=== PATIENT | female | born 1990 | race Caucasian/White ===

== ENCOUNTER 2018-01-25 17:51 | Emergency (ER) | payer MEDICAID ==
[~2018-01-25] VITALS: Ht 160 cm; Wt 67.0 kg
[2018-01-25 18:11] VITALS: BP 121/85
[2018-01-25] MEDS ORDERED: clindamycin 150mg capsule PO ONE (18:50)
[2018-01-25] MEDS ORDERED: acetaminophen 325mg tablet PO ONE (18:50)
[2018-01-25] MEDS ORDERED: CLIN-79 PO (18:51)
== END 2018-01-25 19:07 | disposition home or self-care (01) ==
LOC: ER 17:52
DX: K08.89 Other specified disorders of teeth and supporting structures (principal); Z56.0 Unemployment, unspecified; Z88.0 Allergy status to penicillin; Z88.8 Allergy status to other drugs, medicaments and biological substances; Z79.899 Other long term (current) drug therapy
CPT/HCPCS: 99283

== ENCOUNTER 2018-03-12 17:14 | Emergency (ER) | payer MEDICAID ==
[~2018-03-12] VITALS: Ht 160 cm; Wt 63.0 kg
[~2018-03-12 17:14] MED LIST: CLIN150C8 PO
[2018-03-12 17:26] VITALS: BP 124/86
== END 2018-03-12 18:20 | disposition home or self-care (01) ==
LOC: ER 17:15
DX: J02.9 Acute pharyngitis, unspecified (principal); Z88.1 Allergy status to other antibiotic agents; Z88.0 Allergy status to penicillin
CPT/HCPCS: 87081; 87880; 99284

== ENCOUNTER 2018-12-28 09:01 | Emergency (ER) | payer MEDICAID ==
[~2018-12-28] VITALS: Ht 160 cm; Wt 69.0 kg
[2018-12-28 09:30] VITALS: BP 126/87
[2018-12-28] MEDS ORDERED: MAGN296S50 PO (09:37)
[2018-12-28] MEDS ORDERED: magnesium citrate 296ml oral solution PO ONE (10:00)
== END 2018-12-28 10:09 | disposition home or self-care (01) ==
LOC: ER 09:01
DX: K59.00 Constipation, unspecified (principal); Z88.0 Allergy status to penicillin; Z88.1 Allergy status to other antibiotic agents; Z79.899 Other long term (current) drug therapy; Z56.0 Unemployment, unspecified
CPT/HCPCS: 99282

== ENCOUNTER 2019-02-02 15:08 | Emergency (ER) | payer MEDICAID ==
[~2019-02-02] VITALS: Ht 160 cm; Wt 68.3 kg
[~2019-02-02 15:08] MED LIST changes: +MAGN296S50 PO
[2019-02-02 15:14] VITALS: BP 129/85
== END 2019-02-02 15:30 | disposition left against medical advice (07) ==
LOC: ER 15:08
DX: R10.11 Right upper quadrant pain (principal); Z53.21 Procedure and treatment not carried out due to patient leaving prior to being seen by health care provider

== ENCOUNTER 2021-09-27 23:17 | Emergency (ER) | payer MEDICAID ==
[~2021-09-27] VITALS: Ht 160 cm; Wt 64.5 kg
[~2021-09-27 23:17] MED LIST changes: -MAGN296S50 PO; +MAGN296S70 PO
[2021-09-27 23:28] VITALS: BP 113/80
[2021-09-27] MEDS ORDERED: ondansetron 4mg rapidly disintigrating tab PO ONE (23:50)
[2021-09-27] MEDS ORDERED: TETanus/Pertussis (Acell)/Diphther VAC/PF (Tdap-Adult) 0.5ml syringe IMVAC ONE (23:50)
[2021-09-27] MEDS ORDERED: morphine 4 MG/ML inj SYRINge IM ONE (23:50)
[2021-09-28 00:24] LABS: HCG SERUM QL NEGATIVE
[2021-09-28] MEDS ORDERED: LIDOcaine 1% 30ml preserv. free vial IJ ONE (01:05)
[2021-09-28] MEDS ORDERED: HYDROcodone/acetaminophen 10/325mg tab PO ONE (01:05)
--- NOTE | 2021-09-28 03:09 | NUR ---
MD sutured patient's injured finger with 4.0 ethilon. this RN cleaned wound with normal saline and kerlix pads. patient tolerated procedure. awaiting MD orders for splint and dressing.
[2021-09-28] MEDS ORDERED: HYDR-3965 PO (04:12)
[2021-09-28] MEDS ORDERED: DOXY-1 PO (04:12)
[2021-09-28] MEDS ORDERED: morphine 4 MG/ML inj SYRINge IM ONE (04:15)
[2021-09-29] MEDS ORDERED: NO HOME MEDS (11:52)
[2021-09-30] MEDS ORDERED: midazolam 1 mg/ML 2ml injection ONE (09:51)
[2021-09-30] MEDS ORDERED: fentaNYL/PF 50MCG/1 ML 2ML syringe ONE (09:51)
[2021-09-30] MEDS ORDERED: famotidine/PF 10 mg/ml inj IV ONE (09:54)
[2021-09-30] MEDS ORDERED: vancomycin 1,000mg inj ONE (09:56)
[2021-09-30] MEDS ORDERED: BUPIVAcaine/PF 2.5 mg/ml (0.25%) 30ml vial ONE (09:56)
[2021-09-30] MEDS ORDERED: dexamethasone sod phosphate 4mg/ml inj. ONE (10:35)
[2021-09-30] MEDS ORDERED: propofol inj 20 ML IV ONE (10:35)
[2021-09-30] MEDS ORDERED: ondansetron/PF 4mg/2ml inj ONE (10:35)
[2021-09-30] MEDS ORDERED: LIDOcaine 2% (20mg/ml) 5ml vial ONE (10:35)
== END 2021-09-28 04:48 | disposition home or self-care (01) ==
LOC: ER 23:18
DX: S62.633A Displaced fracture of distal phalanx of left middle finger, initial encounter for closed fracture (principal); S61.213A Laceration without foreign body of left middle finger without damage to nail, initial encounter; Z98.890 Other specified postprocedural states; Z72.89 Other problems related to lifestyle; Z56.0 Unemployment, unspecified; Z88.0 Allergy status to penicillin; Z88.1 Allergy status to other antibiotic agents; Z79.2 Long term (current) use of antibiotics; Z79.899 Other long term (current) drug therapy; W54.0XXA Bitten by dog, initial encounter; Y93.89 Activity, other specified; Y92.89 Other specified places as the place of occurrence of the external cause; Y99.8 Other external cause status
CPT/HCPCS: 26755; 36415; 73130; 84703; 90471; 90715; 96372; 99284; J2270; J3490

== ENCOUNTER 2021-09-29 08:38 | Inpatient (IN) | payer MEDICAID ==
[~2021-09-29] VITALS: Ht 157.5 cm; Wt 64.5 kg
[~2021-09-29 08:38] MED LIST changes: +DOXY-1 PO; +HYDR-3965 PO; +levoFLOXACIN-Levaquin 750MG/D5 150 ML IV ONE
--- NOTE | 2021-09-29 09:28 | NUR ---
providet at bedside.
[2021-09-29] MEDS ORDERED: HYDROcodone/acetaminophen 5mg/325mg tablet PO ONE (09:35)
[2021-09-29] MEDS ORDERED: ondansetron 4mg rapidly disintigrating tab PO ONE (09:35)
--- NOTE | 2021-09-29 10:15 | NUR ---
pt ambulated to/from restroom without incident.
[2021-09-29 10:19] LABS: BASOPHILS % (AUTO) 0.3 % (0-1); EOSINOPHILS # (AUTO) 0.1 X10'3 (0-0.9); EOSINOPHILS % (AUTO) 0.7 % (0-6); HEMATOCRIT 34.3 % (35.0-45.0); HEMOGLOBIN 11.9 g/dl (12.0-16.0); LYMPHOCYTES # (AUTO) 1.5 X10'3 (1.1-4.8); LYMPHOCYTES % (AUTO) 15.9 % (21-51); MEAN CORPUSCULAR HEMOGLOBIN 32.3 PG (27.0-31.0); MEAN CORPUSCULAR HGB CONC 34.6 g/dL (33.0-36.5); MEAN CORPUSCULAR VOLUME 93.5 FL (78-98); MEAN PLATELET VOLUME 8.1 FL (7.4-10.4); MONOCYTES # (AUTO) 0.6 X10'3 (0-0.9); MONOCYTES % (AUTO) 6.6 % (2-12); NEUTROPHILS # (AUTO) 7.1 X10'3 (1.8-7.7); NEUTROPHILS % (AUTO) 76.5 % (42-75); PLATELET COUNT 210 X10'3 (140-440); RED BLOOD COUNT 3.67 X10'6 (4.20-5.60); RED CELL DISTRIBUTION WIDTH 12.2 % (11.5-14.5); WHITE BLOOD COUNT 9.3 X10'3 (4.5-11.0)
[2021-09-29 10:35] LABS: ALANINE AMINOTRANSFERASE 19 U/L (12-78); ALBUMIN 3.3 G/DL (3.4-5.0); ALBUMIN/GLOBULIN RATIO 0.9 (1.1-1.5); ALKALINE PHOSPHATASE 46 IU/L (46-116); ANION GAP 9 (8-16); ASPARTATE AMINO TRANSFERASE 9 U/L (10-37); BILIRUBIN,TOTAL 0.8 MG/DL (0.1-1.0); BLOOD UREA NITROGEN 10 MG/DL (7-18); BUN/CREATININE RATIO 14.9 (6.6-38.0); CALCIUM 8.6 MG/DL (8.5-10.1); CHLORIDE 106 MMOL/L (99-107); CREATININE 0.67 MG/DL (0.40-0.90); GLUCOSE 109 MG/DL (70-104); POTASSIUM 3.8 MMOL/L (3.5-5.1); SODIUM 141 MMOL/L (135-145); TOTAL CARBON DIOXIDE 26.2 MMOL/L (24-32); TOTAL PROTEIN 6.9 G/DL (6.4-8.2); eGFR > 90 ML/MIN
[2021-09-29] MEDS ORDERED: HYDROcodone/acetaminophen 5mg/325mg tablet PO PRN (11:15)
[2021-09-29] MEDS ORDERED: mag hydrox/Alum hydrox/simeth 30ml oral suspension PO PRN (11:15)
[2021-09-29] MEDS ORDERED: acetaminophen 325mg tablet PO PRN ×2 (11:15)
[2021-09-29] MEDS ORDERED: magnesium hydroxide 30ml (MOM) UD suspension PO PRN (11:15)
[2021-09-29] MEDS ORDERED: morphine 2 MG/ML inj. syringe IV PRN (11:15)
[2021-09-29] MEDS ORDERED: ondansetron/PF 4mg/2ml inj IV PRN (11:15)
[2021-09-29] MEDS ORDERED: NO HOME MEDS (11:52)
[2021-09-29] MEDS: morphine 2 MG/ML inj. syringe IV PRN ×3 (11:55→19:25)
--- NOTE | 2021-09-29 12:02 | NUR ---
pt ambulated to/from restroom without incident.
--- NOTE | 2021-09-29 13:32 | NUR ---
pillow provided to elevate left hand
--- NOTE | 2021-09-29 13:48 | NUR ---
wound cleaned with normal saline, wrapped with non adhesive gauze and kerlix. meal order placed.
--- NOTE | 2021-09-29 14:33 | NUR ---
lunch tray provided for pt, tolerated well.
[2021-09-29] MEDS: clindamycin 600mg/D5W 50ml 50 ML IV SCH (15:59)
[2021-09-29] MEDS ORDERED: metroNIDAZOLE-Flagyl 500mg/NS 100 ML IV ONE ×2 (16:00→16:48)
[2021-09-29 16:56] LABS: URINE HCG NEGATIVE (NEG)
[2021-09-29] MEDS: docusate sod 100mg capsule PO SCH (19:25)
--- NOTE | 2021-09-29 21:07 | NUR ---
PT C/O PAIN TO LEFT AND RIGHT HAND. NOTED WOUND TO R HAND WELL. BLUE ELEVATED, PT MEDICATED FOR PAIN AND IS REQUESTING TO REST.
[2021-09-30] VITALS (23 sets, daily range): BP systolic 96–126; BP diastolic 58–83
[2021-09-30] MEDS: clindamycin 600mg/D5W 50ml 50 ML IV SCH ×2 (00:08→08:00)
[2021-09-30] MEDS: morphine 2 MG/ML inj. syringe IV PRN ×2 (00:09→05:43)
--- NOTE | 2021-09-30 01:15 | NUR ---
PT PLACED ON HOSPITAL BED FROM MERGED WITH [facility]. TOLERATED WELL. NO S/S OF DISTRESS.
[2021-09-30 02:21] LABS: BASOPHILS % (AUTO) 0.3 % (0-1); EOSINOPHILS # (AUTO) 0.2 X10'3 (0-0.9); EOSINOPHILS % (AUTO) 2.5 % (0-6); HEMATOCRIT 31.1 % (35.0-45.0); HEMOGLOBIN 10.8 g/dl (12.0-16.0); LYMPHOCYTES % (AUTO) 26.8 % (21-51); MEAN CORPUSCULAR HEMOGLOBIN 32.7 PG (27.0-31.0); MEAN CORPUSCULAR HGB CONC 34.6 g/dL (33.0-36.5); MEAN CORPUSCULAR VOLUME 94.4 FL (78-98); MEAN PLATELET VOLUME 8.2 FL (7.4-10.4); MONOCYTES # (AUTO) 0.6 X10'3 (0-0.9); MONOCYTES % (AUTO) 7.8 % (2-12); NEUTROPHILS # (AUTO) 4.8 X10'3 (1.8-7.7); NEUTROPHILS % (AUTO) 62.6 % (42-75); PLATELET COUNT 197 X10'3 (140-440); RED BLOOD COUNT 3.29 X10'6 (4.20-5.60); RED CELL DISTRIBUTION WIDTH 12.4 % (11.5-14.5); WHITE BLOOD COUNT 7.6 X10'3 (4.5-11.0)
[2021-09-30 02:38] LABS: ALBUMIN 2.9 G/DL (3.4-5.0); ANION GAP 9 (8-16); BLOOD UREA NITROGEN 14 MG/DL (7-18); BUN/CREATININE RATIO 16.5 (6.6-38.0); C-REACTIVE PROTEIN 3.34 MG/DL (0.0-0.5); CALCIUM 8.2 MG/DL (8.5-10.1); CHLORIDE 104 MMOL/L (99-107); CREATININE 0.85 MG/DL (0.40-0.90); GLUCOSE 125 MG/DL (70-104); POTASSIUM 3.5 MMOL/L (3.5-5.1); SODIUM 141 MMOL/L (135-145); TOTAL CARBON DIOXIDE 27.7 MMOL/L (24-32); eGFR 79 ML/MIN
[2021-09-30] MEDS: HYDROcodone/acetaminophen 10/325mg tab PO PRN ×3 (03:46→14:09)
[2021-09-30] MEDS: docusate sod 100mg capsule PO SCH (08:00)
[2021-09-30] MEDS ORDERED: BUPIVAcaine/PF 2.5 mg/ml (0.25%) 30ml vial ONE (09:40)
[2021-09-30] MEDS ORDERED: vancomycin 1,000mg inj ONE (09:41)
[2021-09-30] MEDS ORDERED: ringers solution, lacted 1,000 ML IV SCH (10:05)
[2021-09-30] MEDS ORDERED: morphine 2 MG/ML inj. syringe IV PRN (10:05)
[2021-09-30] MEDS ORDERED: proCHLORperazine 10 MG/2 ml inj IV PRN (10:05)
[2021-09-30] MEDS ORDERED: meperidine/PF 25mg/ml syringe IV PRN ×2 (10:05)
[2021-09-30] MEDS ORDERED: hydrALAZINE 20mg/ml inj. IV PRN (10:05)
[2021-09-30] MEDS ORDERED: acetaminophen 1,000mg/100ml IV 100 ML IV PRN (10:05)
[2021-09-30] MEDS ORDERED: ondansetron/PF 4mg/2ml inj IV PRN (10:05)
[2021-09-30] MEDS ORDERED: morphine 4 MG/ML inj SYRINge IV PRN (10:05)
[2021-09-30] MEDS ORDERED: ketorolac trometh. 30mg/ml inj. IV ONE (10:05)
[2021-09-30] MEDS ORDERED: labetalol 20mg/4ml (5mg/ml) syringe IV PRN (10:05)
[2021-09-30] MEDS ORDERED: levoFLOXACIN 750MG TABLET PO SCH (11:00)
--- NOTE | 2021-09-30 11:12 | NUR ---
Received from OR via , accompanied by Anesthesiologist DR NARANJO and report given by Anesthesiolgist. PT PRESENTS WITH 20G RIGHT WRIST, DRESSING ON LEFT HAND DRY AND INTACT, VSS. Addendum: 09/30/21 at 1125 by Shawanda Feliciano RN, RN Amended: Links added.
--- NOTE | 2021-09-30 13:30 | NUR ---
PT SITTING UP IN BED EATING A SANDWICH. PT UP TO THE BATHROOM ABULATED WITH STEADY GAIT. NO SIGN OF DISTRESS NOTED AT THIS TIME. Addendum: 09/30/21 at 1415 by Shawanda Feliciano RN, RN Amended: Links added.
[2021-09-30] MEDS: meperidine/PF 25mg/ml syringe IV PRN ×3 (14:20→15:47)
[2021-09-30] MEDS ORDERED: LEVO750T46 PO (15:14)
[2021-09-30] MEDS ORDERED: CLIN-91 PO (15:14)
[2021-09-30] MEDS ORDERED: HYDR-3964 PO (15:14)
--- NOTE | 2021-09-30 16:32 | NUR ---
ALL DC CRITERIA HAS BEEN MET, VSS. PT PAIN AT TOLERABLE LEVEL 5/10 LEFT HAND. PT IS VOIDING AND ABLE TO AMBULATE WITH STEADY GAIT. IV TAKEN OUT WITHOUT ANY COMPLICATIONS. ALL DISCHARGE INSTRUCTIONS REVIEWED WITH PT, PT GOT ON HER CELL PHONE TALKING WITH PHARMACY WHILE I WAS GOING OVER DISCHARGE INSTRUCTIONS. PT MORE WORRIED ABOUT MAKING SURE SHE HAD HER PAIN MEDS ASKING FOR NORCO 10'S INSTEAD OF NORCO 5/325. I EXPLAINED THE RX WAS ALREADY SENT AND IF SHE FELT SHE NEEDED A DIFFERENT RX TO CALL HER SURGEON IN THE AM. PT WAS WHEELED TO GET HER RX OF NORCO AT [facility] THEN TO [employer] OFFICE TO GET DC INSTRUCTIONS. PT WHEELED TO PERSONAL VEHICLE WHERE FAMILY FRIEND DROVE PT HOME. Addendum: 09/30/21 at 1656 by Shawanda Feliciano RN, RN Amended: Links added.
[2021-09-30] MEDS ORDERED: lactobacillus rhamnosus 10,000 MMU CELLS/CAPSULE PO SCH (20:00)
== END 2021-09-30 10:35 | disposition home or self-care (01) | DRG 316 ==
LOC: ER 08:39 → ED HOLD 11:18 → EDBEDREQ 09-30 03:40
PROVIDERS: ADMIT Internal Medicine; ATTEND Internal Medicine
PROC: 0PSV34Z Reposition Left Finger Phalanx with Internal Fixation Device, Percutaneous Approach (ICD-10-PCS; 2021-09-30)
PROC: 0LB80ZZ Excision of Left Hand Tendon, Open Approach (ICD-10-PCS; principal; 2021-09-30 10:02)
DX: S62.633B Displaced fracture of distal phalanx of left middle finger, initial encounter for open fracture (principal); F17.210 Nicotine dependence, cigarettes, uncomplicated; L03.012 Cellulitis of left finger; M20.012 Mallet finger of left finger(s); Z20.822 Contact with and (suspected) exposure to COVID-19; M65.842 Other synovitis and tenosynovitis, left hand; L03.114 Cellulitis of left upper limb; Z88.0 Allergy status to penicillin; Z98.891 History of uterine scar from previous surgery; Z56.0 Unemployment, unspecified; Z88.1 Allergy status to other antibiotic agents; W54.0XXA Bitten by dog, initial encounter; Y93.89 Activity, other specified; Y92.89 Other specified places as the place of occurrence of the external cause; Y99.8 Other external cause status
CPT/HCPCS: 36415; 73120; 76000; 80048; 80053; 81025; 85025; 85651; 86140; 87070; 87075; 87077; 87102; 87186; 87635; 99285; A4215; A4618; A6222; A6446; A6449; A7000; C1713; G0378; J1885; J1956; J2175; J2270; J3370; J3490; J7120

== ENCOUNTER 2021-11-30 10:35 | Emergency (ER) | payer MEDICAID ==
[~2021-11-30] VITALS: Ht 157.5 cm; Wt 66.8 kg
[~2021-11-30 10:35] MED LIST changes: -CLIN150C8 PO; -DOXY-1 PO; +HYDR-3964 PO; -HYDR-3965 PO; +LEVO750T46 PO; -MAGN296S70 PO; -levoFLOXACIN-Levaquin 750MG/D5 150 ML IV ONE
[2021-11-30] MEDS ORDERED: LORazepam 2 mg/ml vial IV ONE (10:40)
[2021-11-30] MEDS ORDERED: normal saline 1000ML IV soln IVB ONE (10:40)
[2021-11-30] MEDS ORDERED: diphenhydrAMINE 50 mg/ml inj ONE (11:07)
[2021-11-30] MEDS ORDERED: diphenhydrAMINE 50 mg/ml inj IM ONE (11:10)
[2021-11-30 11:16] LABS: BASOPHILS # (AUTO) 0.1 X10'3 (0-0.2); EOSINOPHILS % (AUTO) 0.6 % (0-6); HEMATOCRIT 36.2 % (35.0-45.0); HEMOGLOBIN 12.3 g/dl (12.0-16.0); LYMPHOCYTES # (AUTO) 1.6 X10'3 (1.1-4.8); LYMPHOCYTES % (AUTO) 19.6 % (21-51); MEAN CORPUSCULAR HEMOGLOBIN 31.9 PG (27.0-31.0); MEAN CORPUSCULAR HGB CONC 34.1 g/dL (33.0-36.5); MEAN CORPUSCULAR VOLUME 93.7 FL (78-98); MEAN PLATELET VOLUME 7.3 FL (7.4-10.4); MONOCYTES # (AUTO) 0.5 X10'3 (0-0.9); MONOCYTES % (AUTO) 6.1 % (2-12); NEUTROPHILS # (AUTO) 5.8 X10'3 (1.8-7.7); NEUTROPHILS % (AUTO) 72.7 % (42-75); PLATELET COUNT 273 X10'3 (140-440); RED BLOOD COUNT 3.86 X10'6 (4.20-5.60); RED CELL DISTRIBUTION WIDTH 14.5 % (11.5-14.5)
[2021-11-30 11:36] LABS: ALANINE AMINOTRANSFERASE 34 U/L (12-78); ALBUMIN/GLOBULIN RATIO 1.1 (1.1-1.5); ALKALINE PHOSPHATASE 82 IU/L (46-116); ANION GAP 19 (8-16); ASPARTATE AMINO TRANSFERASE 35 U/L (10-37); BILIRUBIN,TOTAL 1.1 MG/DL (0.1-1.0); BLOOD UREA NITROGEN 9 MG/DL (7-18); BUN/CREATININE RATIO 8.9 (6.6-38.0); CHLORIDE 98 MMOL/L (99-107); CREATININE 1.01 MG/DL (0.40-0.90); GLUCOSE 104 MG/DL (70-104); MAGNESIUM 1.4 MG/DL (1.5-2.4); POTASSIUM 3.5 MMOL/L (3.5-5.1); SODIUM 142 MMOL/L (135-145); TOTAL CARBON DIOXIDE 24.8 MMOL/L (24-32); TOTAL PROTEIN 7.6 G/DL (6.4-8.2); eGFR 65 ML/MIN
[2021-11-30 12:17] LABS: CREATINE KINASE 357 U/L (26-192)
[2021-11-30 12:36] VITALS: BP 132/81
== END 2021-12-01 08:39 | disposition home or self-care (01) ==
LOC: ER 10:36
DX: G24.9 Dystonia, unspecified (principal); Z98.891 History of uterine scar from previous surgery; Z88.0 Allergy status to penicillin; Z88.1 Allergy status to other antibiotic agents; Z79.2 Long term (current) use of antibiotics; Z79.899 Other long term (current) drug therapy
CPT/HCPCS: 36415; 80053; 80329; 82550; 83605; 83735; 84443; 85025; 93005; 96372; 96374; 99284; J1200; J2060; J7030

== ENCOUNTER 2021-12-06 18:26 | Emergency (ER) | payer MEDICAID ==
[~2021-12-06] VITALS: Ht 160 cm; Wt 67.5 kg
[2021-12-06 19:00] VITALS: BP 146/90
[2021-12-06] MEDS ORDERED: ketorolac trometh. 30mg/ml inj. IM ONE (20:05)
[2021-12-06] MEDS ORDERED: clindamycin 150mg capsule PO ONE (20:05)
[2021-12-06] MEDS ORDERED: CLIN-117 PO ×3 (20:29→20:57)
[2021-12-06] MEDS ORDERED: IBUP-1986 PO ×3 (20:29→20:57)
== END 2021-12-06 20:58 | disposition home or self-care (01) ==
LOC: ER 18:27
DX: L53.8 Other specified erythematous conditions (principal); Z88.0 Allergy status to penicillin; Z88.1 Allergy status to other antibiotic agents; Z79.899 Other long term (current) drug therapy
CPT/HCPCS: 73140; 96372; 99283; J1885

== ENCOUNTER 2024-07-16 12:58 | Emergency (ER) | payer MEDICAID ==
[~2024-07-16] VITALS: Ht 157.5 cm; Wt 59.9 kg
[~2024-07-16 12:58] MED LIST changes: +IBUP-1986 PO; -LEVO750T46 PO; +LEVO750T68 PO; +[UNRECOGNIZED DRUG - CODE] PO
[2024-07-16 13:10] VITALS: BP 133/87; PULSE 72; O2SAT 100
[2024-07-16 14:05] VITALS: RESP 16
[2024-07-16] MEDS: ketorolac trometh 30MG/ML vial 30 MG/ML VIAL IM ONE (14:05)
[2024-07-16] MEDS ORDERED: IBUP-1984 PO (14:16)
[2024-07-16 14:29] VITALS: TEMP 98.9
== END 2024-07-16 14:32 | disposition home or self-care (01) ==
LOC: ER 12:58
DX: S92.335A Nondisplaced fracture of third metatarsal bone, left foot, initial encounter for closed fracture (principal); S92.345A Nondisplaced fracture of fourth metatarsal bone, left foot, initial encounter for closed fracture; S92.355A Nondisplaced fracture of fifth metatarsal bone, left foot, initial encounter for closed fracture; Z88.0 Allergy status to penicillin; Z88.1 Allergy status to other antibiotic agents; Z88.5 Allergy status to narcotic agent; Z88.6 Allergy status to analgesic agent; W20.8XXA Other cause of strike by thrown, projected or falling object, initial encounter; Y93.89 Activity, other specified; Y92.89 Other specified places as the place of occurrence of the external cause; Y99.8 Other external cause status
CPT/HCPCS: 73630; 96372; 99283; J1885; L3260

== ENCOUNTER 2024-07-18 16:06 | Emergency (ER) | payer MEDICAID ==
[~2024-07-18] VITALS: Ht 157.5 cm; Wt 63.9 kg
[~2024-07-18 16:06] MED LIST changes: +IBUP-1984 PO
[2024-07-18 16:13] VITALS: BP 122/84; PULSE 68; O2SAT 100
[2024-07-18 17:31] VITALS: RESP 16
[2024-07-18] MEDS: hydrOXYzine 25 MG tablet PO ONE (17:31)
[2024-07-18] MEDS: traMADol 50MG tablet PO ONE (17:31)
[2024-07-18 17:44] VITALS: TEMP 98.3
[2024-07-19] MEDS ORDERED: TRAM50TA2 PO (11:18)
[2024-07-19] MEDS ORDERED: HYDR-3686 PO (11:18)
== END 2024-07-18 17:46 | disposition home or self-care (01) ==
LOC: ER 16:06
DX: S92.302D Fracture of unspecified metatarsal bone(s), left foot, subsequent encounter for fracture with routine healing (principal); Z88.0 Allergy status to penicillin; Z88.1 Allergy status to other antibiotic agents; Z79.1 Long term (current) use of non-steroidal anti-inflammatories (NSAID); Z79.2 Long term (current) use of antibiotics; Z79.899 Other long term (current) drug therapy; Z98.890 Other specified postprocedural states; X58.XXXD Exposure to other specified factors, subsequent encounter
CPT/HCPCS: 99283; L4360; Q0177

== ENCOUNTER 2024-07-19 10:12 | Emergency (ER) | payer MEDICAID ==
[~2024-07-19] VITALS: Ht 160 cm; Wt 65.3 kg
[2024-07-19 10:23] VITALS: TEMP 98.6
[2024-07-19] MEDS ORDERED: TRAM50TA2 PO (11:18)
[2024-07-19] MEDS ORDERED: HYDR-3686 PO (11:18)
[2024-07-19 11:26] VITALS: BP 123/86; PULSE 89; RESP 15; O2SAT 99
== END 2024-07-19 11:56 | disposition home or self-care (01) ==
LOC: ER 10:12
DX: S92.332D Displaced fracture of third metatarsal bone, left foot, subsequent encounter for fracture with routine healing (principal); S92.342D Displaced fracture of fourth metatarsal bone, left foot, subsequent encounter for fracture with routine healing; S92.352D Displaced fracture of fifth metatarsal bone, left foot, subsequent encounter for fracture with routine healing; Z88.0 Allergy status to penicillin; Z88.1 Allergy status to other antibiotic agents; Z79.1 Long term (current) use of non-steroidal anti-inflammatories (NSAID); Z79.2 Long term (current) use of antibiotics; Z56.0 Unemployment, unspecified; Z98.890 Other specified postprocedural states; Z76.0 Encounter for issue of repeat prescription; X58.XXXD Exposure to other specified factors, subsequent encounter
CPT/HCPCS: 99281